=== PATIENT | female | born 1960 | race Caucasian/White ===

== ENCOUNTER 2019-08-03 22:57 | Inpatient (IN) | payer MEDICAID, SELFPAY ==
[2019-08-03 22:59] VITALS: BP 135/101; PULSE 105; RESP 18; TEMP 36.6; O2SAT 95; BMI 27.4
[2019-08-03 23:25] LABS: Basophils % 0.2 %; Eosinophils # 0.1 10^3/uL (0.0-0.8); Eosinophils % 1.9 %; Hematocrit 40.1 % (37.0-47.0); Hemoglobin 13.2 g/dL (11.5-15.3); Lymphocytes # 1.5 10^3/uL (0.8-4.8); Lymphocytes % 36.3 %; Mean Corpuscular HGB Conc 32.9 g/dL (30.0-36.0); Mean Corpuscular Hemoglobin 28.9 pg (28.0-34.0); Mean Corpuscular Volume 87.7 fL (81-99); Monocytes # 0.4 10^3/uL (0.2-0.9); Monocytes % 10.5 %; Neutrophils # 2.1 10^3/uL (1.8-7.7); Neutrophils % 50.9 %; Nucleated Red Blood Cells % 0 %; Platelet Count 180 10^3/cmm (130-400); Red Blood Count 4.57 10^6/uL (4.1-5.3); Red Cell Distribution Width 12.4 % (12.1-15.1); White Blood Count 4.2 10^3/uL (4.0-10.0)
[2019-08-03 23:46] LABS: Alanine Aminotransferase 15 U/L (0-33); Albumin Level 4.3 g/dL (3.5-5.2); Alkaline Phosphatase 101 IU/L (35-105); Anion Gap 14.7 (5-19); Aspartate Amino Transferase 17 U/L (0-32); Blood Urea Nitrogen 8 mg/dL (6-20); Calcium 10.1 mg/dL (8.5-10.5); Carbon Dioxide 26 mmol/L (22-29); Chloride 103 mmol/L (98-107); Globulin 3.2 g/dL (1.3-4.6); Glomerular Filtration Rate 102.3 mL/min (90-130); Glucose 131 mg/dL (74-109); Lipase 17 U/L (13-60); Potassium 3.7 mmol/L (3.5-5.1); Sodium 140 mmol/L (136-145); Total Bilirubin 0.4 mg/dL (0.15-1.2); Total Protein 7.5 g/dL (6.6-8.7)
[2019-08-04] VITALS (12 sets, daily range): BP systolic 110–151; BP diastolic 74–96; PULSE 67–95; RESP 16–18; TEMP 36.8; O2SAT 94–100
--- NOTE | 2019-08-04 02:48 | ED_ITS ---
Entered by Amina Patrick, acting as scribe for Lara Puga Aug 03, 2019 22:57 HPI - Abdominal Pain General: Chief Complaint: Abdominal Pain Stated Complaint: abd pain Time Seen by Provider: 08/04/19 02:45 History of Present Illness: HPI narrative: 59 yo f came to the er for abd pain. Onset was 2 months ago. Pt states that she had a really bad pain in her lower abd. Pt states that the pain is gone. Pt is Macanese and speaks very little spanish. Pt has her daughter that is translating for her mother. MD elicited complaint: abdominal pain Pertinent past history: none Onset (ago): month(s) (2 months ago) Pain Consistency: intermittent Location: RLQ and LLQ Severity: mild Quality: cramping and sharp Radiation: none Migration to: no migration Relieving factors: nothing Associated Symptoms: Reports no associated symptoms; Denies chills, coffee ground emesis, constipation, GI cramping, diarrhea, dysuria, fever(s), hematochezia, hematuria, hematemesis, melena, nausea, syncope and vomiting Related Data: Patient : No Review of Systems General: Reports: other (negative unless marked) Const: Denies: fever, chills, body aches, fatigue, malaise or diaphoresis Eyes: Denies: change in vision or blurry vision ENMT: Denies: throat pain, painful swallowing, hoarseness, ear pain, ear discharge, Change in hearing or nasal discharge Card: Denies: chest pain, palpitations, irregular heart rhythm, syncope, pre- syncope, shortness of breath on exertion or shortness of breath when lying down Resp: Denies: shortness of breath, productive cough, non-productive cough, wheezing, coughing up blood or chest congestion GI: Reports: abdominal pain; Denies: nausea, vomiting, vomiting blood, coffee grounds in vomit, diarrhea, constipation, cramping, blood in stool or black tarry stool : Denies: flank pain, painful urination, urinary frequency, urinary urgency, decreased urine ouput, urinary incontinence or blood in urine Musc: Denies: neck pain, back pain, extremity pain, extremity swelling, joint pain, joint swelling, joint warmth or joint stiffness Skin/Breast: Denies: rash, skin tenderness or yellow skin Neuro: Denies: headache, numbness in extremities, weakness in extremities, changes in sensation, lack of coordination, difficulty walking, dizziness, vertigo or confusion Endo: Denies: excessive thirst, tired all the time, cold intolerance, excessive sweating, flushing or hot flashes Gene/Lymph: Denies: easy bruising, easy bleeding, petechiae or enlarged lymph nodes All/Imm: Denies: hives, throat swelling, tongue swelling, facial swelling or acute wheezing PFSH ED PFSH: Statuses (acute, chronic, etc) shown below reflect problem list status as previously entered and may not be historically accurate Medical History Acalculous cholecystitis (Acute) Surgical History Hx laparoscopic cholecystectomy (Acute) Social History Smoking and tobacco status: never smoked Physical Exam Const: COMMON NORMALS: no apparent distress, oriented x3, no limitations, healthy appearing and well nourished EXAM LIMITATIONS: no altered mental status GENERAL APPEARANCE: cooperative, well kempt and well developed ORIENTATION/CONSCIOUSNESS: Yes awake HENMT: COMMON NORMALS: normocephalic, head/scalp atraumatic, hearing grossly normal bilaterally, external ears normal, EAC's normal, external nose normal and moist oral mucous membranes HEAD & SCALP: normal to inspection, normocephalic and atraumatic FACE & SINUS: normal facial exam and face symmetric NOSE: external nose normal and nares normal EXTERNAL EAR: Yes external ears normal EXTERNAL AUDITORY CANAL: EAC's normal MOUTH: oral and palatal mucosa normal and tongue normal Eye: COMMON NORMALS: PERRL, EOMs intact bilaterally, conjunctivae normal and no scleral icterus GENERAL EYE: normal appearance of both eyes and normal light reflex CONJUNCTIVA: Yes conjunctivae normal SCLERA: sclerae normal CORNEA: Yes corneas normal PUPIL: Yes PERRL DIRECT OPHTHALMOSCOPY: Yes normal light reflex Neck/C-Spine: COMMON NORMALS: full ROM, no lymphadenopathy, supple, no meningeal signs and no JVD GENERAL: Yes normal visual inspection and Yes trachea midline CERVICAL SPINE: Yes cervical ROM normal Chest: COMMONS NORMALS: inspection of chest normal and palpation of chest normal Resp: COMMON NORMALS: normal respiratory effort, no retractions, no use of accessory muscles and clear to auscultation bilaterally EFFORT & INSPECTION: Yes able to speak in complete sentences AUSCULTATION: clear to auscultation bilaterally Cardio: COMMON NORMALS: no JVD, regular rate, regular rhythm, S1 normal heart sound, S2 normal heart sound, no gallops, no clicks, no murmurs and no rub JUGULAR VENOUS DISTENTION: no JVD RATE: regular rate RHYTHM: regular rhythm HEART SOUNDS: S1 normal and S2 normal GI: COMMON NORMALS: soft to palpation, no hepatosplenomegaly and no masses INSPECTION: Yes normal to inspection PALPATION: Yes soft, Yes tender Details: RLQ and Yes no hepatosplenomegaly : COMMON NORMALS: Yes no CVA tenderness BLADDER/KIDNEY EXAM: Yes no CVA tenderness Back/Pelvis: COMMON NORMALS: no CVA tenderness, thoracic and lumbar spine normal to inspection, no thoracic nor lumbar tenderness and thoraco-lumbar ROM normal Extremity: COMMON NORMALS: normal to inspection, full ROM, normal capillary refill, no joint enlargement, no clubbing, cyanosis or edema and no calf tenderness Neuro: COMMON NORMALS: oriented x3, CN's II-XII intact bilaterally, moves all extremities, no focal motor deficits and no sensory deficits noted MENINGEAL SIGNS: Yes no meningeal signs Psych: COMMON NORMALS: mental status grossly normal, thought process normal, cooperative, affect normal, speech normal and activity/motor behavior normal APPEARANCE: Yes well kempt SPEECH: Yes normal speech THOUGHT PROCESS: nor mal thought process Skin: COMMON NORMALS: no rashes or lesions noted, skin turgor normal, no jaundice, no petechiae and no mottling GENERAL SKIN EXAM: no rashes or lesions noted and turgor normal Course Vital Signs: Vital signs: Vital Signs Temperature 97.9 F 08/03/19 22:59 Pulse Rate 86 08/04/19 04:02 Respiratory Rate 18 08/04/19 04:02 Blood Pressure 116/82 08/04/19 04:02 Pulse Oximetry 97 08/04/19 04:02 MDM - Abdominal Pain MDM Narrative: Medical decision making narrative: The case was reviewed with Drs. Grande and Aric, they will admit and consult respectively. The plan is to treat the patient's possible appendicitis with IV antibiotics and plan for radiology guided paracentesis to better determine the source of this patient's cancer. Lab Data: Labs: Lab Results 08/03/19 08/03/19 08/04/19 Range/Units 23:20 23:20 00:30 WBC 4.2 (4.0-10.0) 10^3/ uL RBC 4.57 (4.1-5.3) 10^6/u L Hgb 13.2 (11.5-15.3) g/dL Hct 40.1 (37.0-47.0) % MCV 87.7 (81-99) fL MCH 28.9 (28.0-34.0) pg MCHC 32.9 (30.0-36.0) g/dL RDW 12.4 (12.1-15.1) % Plt Count 180 (130-400) 10^3/c mm MPV 10.0 (7.4-10.4) fL Neut % (Auto) 50.9 % Lymph % (Auto) 36.3 % Curry % (Auto) 10.5 % Eos % (Auto) 1.9 % Baso % (Auto) 0.2 % Neut # (Auto) 2.1 (1.8-7.7) 10^3/u L Lymph # (Auto) 1.5 (0.8-4.8) 10^3/u L Curry # (Auto) 0.4 (0.2-0.9) 10^3/u L Eos # (Auto) 0.1 (0.0-0.8) 10^3/u L Baso # (Auto) 0.0 (0.0-0.1) 10^3/u L Nucleated RBC % (a uto) 0 % Nucleated RBCs # 0.0 /100WBC PT (10.5-13.3) SECO NDS INR (0.8-1.2) APTT (23.9-36.7) SECO NDS Sodium 140 (136-145) mmol/L Potassium 3.7 (3.5-5.1) mmol/L Chloride 103 (98-107) mmol/L Carbon Dioxide 26 (22-29) mmol/L Anion Gap 14.7 (5-19) BUN 8 (6-20) mg/dL Creatinine 0.6 (0.5-0.9) mg/dL GFR Calculation 102.3 (90-130) mL/min Glucose 131 H (74-109) mg/dL Calcium 10.1 (8.5-10.5) mg/dL Total Bilirubin 0.4 (0.15-1.2) mg/dL AST 17 (0-32) U/L ALT 15 (0-33) U/L Alkaline Phosphata se 101 (35-105) IU/L Total Protein 7.5 (6.6-8.7) g/dL Albumin 4.3 (3.5-5.2) g/dL Globulin 3.2 (1.3-4.6) g/dL Lipase 17 (13-60) U/L Urine Color Yellow (Yellow) Urine Appearance Clear (CLEAR) Urine pH 5 (5-7) Ur Specific Gravit y 1.015 (1.005-1.030) Urine Protein Neg (Negative) Urine Glucose (UA) Norm (Normal) Urine Ketones 1+ H (Negative) Urine Occult Blood Neg (Negative) Urine Nitrate Negative (Negative) Urine Bilirubin Neg (NEGATIVE) Urine Urobilinogen Norm (Negative) mg/dL Ur Leukocyte Sulma ase Negative (Negative) Urine RBC None (0-2) /hpf Urine WBC None (0-5) /hpf Ur Squamous Epith Cells 0-4 H (0-5) Ur Transition Epit h Cell 0-4 /hpf Urine Bacteria Trace (NONE) Urine Mucus 2+ 08/04/19 Range/Units 04:09 WBC (4.0-10.0) 10^3/ uL RBC (4.1-5.3) 10^6/u L Hgb (11.5-15.3) g/dL Hct (37.0-47.0) % MCV (81-99) fL MCH (28.0-34.0) pg MCHC (30.0-36.0) g/dL RDW (12.1-15.1) % Plt Count (130-400) 10^3/c mm MPV (7.4-10.4) fL Neut % (Auto) % Lymph % (Auto) % Curry % (Auto) % Eos % (Auto) % Baso % (Auto) % Neut # (Auto) (1.8-7.7) 10^3/u L Lymph # (Auto) (0.8-4.8) 10^3/u L Curry # (Auto) (0.2-0.9) 10^3/u L Eos # (Auto) (0.0-0.8) 10^3/u L Baso # (Auto) (0.0-0.1) 10^3/u L Nucleated RBC % (a uto) % Nucleated RBCs # /100WBC PT 14.20 H (10.5-13.3) SECO NDS INR 1.06 (0.8-1.2) APTT 31.5 (23.9-36.7) SECO NDS Sodium (136-145) mmol/L Potassium (3.5-5.1) mmol/L Chloride (98-107) mmol/L Carbon Dioxide (22-29) mmol/L Anion Gap (5-19) BUN (6-20) mg/dL Creatinine (0.5-0.9) mg/dL GFR Calculation (90-130) mL/min Glucose (74-109) mg/dL Calcium (8.5-10.5) mg/dL Total Bilirubin (0.15-1.2) mg/dL AST (0-32) U/L ALT (0-33) U/L Alkaline Phosphata se (35-105) IU/L Total Protein (6.6-8.7) g/dL Albumin (3.5-5.2) g/dL Globulin (1.3-4.6) g/dL Lipase (13-60) U/L Urine Color (Yellow) Urine Appearance (CLEAR) Urine pH (5-7) Ur Specific Gravit y (1.005-1.030) Urine Protein (Negative) Urine Glucose (UA) (Normal) Urine Ketones (Negative) Urine Occult Blood (Negative) Urine Nitrate (Negative) Urine Bilirubin (NEGATIVE) Urine Urobilinogen (Negative) mg/dL Ur Leukocyte Sulma ase (Negative) Urine RBC (0-2) /hpf Urine WBC (0-5) /hpf Ur Squamous Epith Cells (0-5) Ur Transition Epit h Cell /hpf Urine Bacteria (NONE) Urine Mucus Coding Level of Care Code ED [facility] for [facility] Fwd Exam Problem Focused The documentation recorded by the Darnell izquierdo Stephanie Lyn, accurately reflects the service I personally performed and the decisions made by Edd darden Eli N Aug 03, 2019 22:57
--- NOTE | 2019-08-04 02:49 | PC.NURSE ---
Introduced self to patient and initiated vital signs. Pt is A&O x 4 and agreeable. Pt daughter states that the reason for the ER visit today is due to abdominal pain which presented a few months ago . Pt does not speak Latvian fluently. Reassured patient of needs and will continue to monitor. Awaiting provider at bedside.
[2019-08-04 02:57] LABS: Urine Appearance Clear (CLEAR); Urine Color Yellow (Yellow); pH Urine 5 (5-7)
[2019-08-04 03:02] LABS: Bilirubin Urine Neg (NEGATIVE); Blood Urine Neg (Negative); Glucose Urine UA Norm (Normal); Ketones Urine 1+ (Negative); Leukocyte Esterase Urine Negative (Negative); Nitrate Urine Negative (Negative); Protein Urine Neg (Negative); Specific Gravity, Urine 1.015 (1.005-1.030); Urobilinogen Urine Norm (Negative)
--- NOTE | 2019-08-04 03:02 | CTR_ITS ---
PROCEDURE INFORMATION: Exam: CT Abdomen And Pelvis With Contrast Exam date and time: 08/04/2019 3:21 AM Age: 59 years old Clinical indication: Abdominal pain; Acute; Prior surgery; Surgery date: 6+ months; Surgery type: Cholecystectomy TECHNIQUE: Imaging protocol: Computed tomography of the abdomen and pelvis with intravenous contrast. Total DLP: 1075.09 mGy-cm Radiation optimization: All CT scans at this facility use at least one of these dose optimization techniques: automated exposure control; mA and/or kV adjustment per patient size (includes targeted exams where dose is matched to clinical indication); or iterative reconstruction. Contrast material: OMNI 300; Contrast volume: 95 ml; Contrast route: 20G; COMPARISON: US gall bladder [id number] 08/28/2018 1:48 PM FINDINGS: Pleural space: Small bilateral pleural effusions. Mediastinum: Small hiatal hernia. Liver: Mildly enlarged caudate lobe of the liver. No focal hepatic lesion. Gallbladder and bile ducts: Cholecystectomy. Pancreas: Normal. No ductal dilation. Spleen: Borderline splenomegaly. Adrenals: Normal. No mass. Kidneys and ureters: Tiny right renal calcification, either representing nonobstructive nephrolithiasis or calcification in the cyst wall. Right renal cysts measuring up to 12 mm. Subcentimeter right renal hypodensity, too small to characterize. Stomach and bowel: Couple of mildly dilated loops of proximal jejunum without a transition point. Small duodenal diverticulum. Appendix: Thickened appendix, measuring up to 8.5 mm. Intraperitoneal space: Peritoneal carcinomatosis. Large amount of partially loculated ascites. Vasculature: No abdominal aortic aneurysm. Lymph nodes: No enlarged lymph nodes. Bladder: Unremarkable as visualized. Reproductive: Unremarkable as visualized. Bones/joints: Unremarkable. No acute fracture. Soft tissues: Unremarkable. CT/CT abdomen pelvis w con* [id number] IMPRESSION: 1. Thickened appendix, measuring up to 8.5 mm. Acute appendicitis cannot be excluded. 2. Couple of mildly dilated loops of proximal jejunum without a transition point. Partial small-bowel obstruction is unlikely but cannot be excluded. 3. Peritoneal carcinomatosis. 4. Large amount of partially loculated ascites. 5. Tiny right renal calcification, either representing nonobstructive nephrolithiasis or calcification in the cyst wall. 6. Borderline splenomegaly. 7. Small bilateral pleural effusions. Radiation Dose CTDIVOL = (mGy): DLP = 1075.09 (mGy-cm)
--- NOTE | 2019-08-04 03:02 | US_ITS ---
WS: [id number] Abdomen ultrasound, 08/04/2019 Clinical Data: Pain Comparison: None. Findings: There is ascites in all 4 quadrants of the abdomen. US/US abdomen limited [id number] Impression: Large amount of abdominal ascites. .
[2019-08-04 03:04] LABS: Add Urine Culture? No; Bacteria Urine TRACE; Mucus Urine 2+; Squamous Epithelial Cell Urine 0-4 (0-5); Transitional Epi Cells Urine 0-4 /hpf
[2019-08-04] MEDS: sodium chloride 0.9% 1,000 ML 100 ML IV (03:55)
[2019-08-04] MEDS: ondansetron 2 mg/ML SDV 2 mL 4 MG IVP (03:55)
[2019-08-04] MEDS: morphine 4 mg/mL SDV 1 mL IVP (03:55)
[2019-08-04] MEDS: iohexol 300 mg/mL 100 mL Btl IV (04:44)
[2019-08-04 05:11] LABS: INR 1.06 (0.8-1.2)
[2019-08-04 05:12] LABS: Partial Thromboplastin Time 31.5 SECONDS (23.9-36.7)
--- NOTE | 2019-08-04 05:40 | P.HP_ITS ---
Providers/Chief Complaint Primary Care Provider: Eric Zepeda MD Chief Complaint: abd pain History of Present Illness Yuly Elias is a 59 year old female with no significant past medical history came in with chief complaint of abdominal pain. Patient is Cook Islander- speaking, daughter is at the bedside who is translating for her. Patient started having abdominal pain about 2 months ago which has been gradually getting worse it is mainly located in the right lower quadrant area, 8/10 dull in nature, nausea getting more diffuse, she has not experienced any fever, chills, nausea, vomiting, fever, weight loss, night sweats. Her last bowel movement was yesterday which was normal. no previous history of cancers. She has lived a healthy life without any complications in the past. She has had 13 pregnancies, she has 10 children, youngest child of leukemia. There is no family history of cancer. She was scheduled for uterine prolapse surgery today with Dr. Elliott. Diagnostics in ER showed normal hemodynamics, patient is and is not in any active cruzito pain, CT abdomen is showing appendicitis, loculated ascites, peritoneal carcinomatosis, Dr. Corbett has been consulted who is recommending Zosyn, interventional radiology to do ascitic tap for diagnostic purposes. All questions were answered to their satisfaction. Review of Systems Const: Reports: chills, body aches, change in appetite and fatigue; Denies: fever, change in weight, malaise or night sweats Eyes: Denies: change in vision ENMT: Denies: throat pain Card: Denies: chest pain or palpitations Resp: Denies: shortness of breath or productive cough GI: Reports: abdominal pain; Denies: nausea, vomiting, vomiting blood, coffee grounds in vomit, heartburn/indigestion or constipation : Denies: flank pain or urinary frequency Musc: Denies: neck pain Skin/Breast: Denies: rash or itching Neuro: Denies: headache, numbness in extremities or weakness in extremities Psych: Denies: anxiety or depression Endo: Denies: excessive urination Gene/Lymph: Denies: easy bruising All/Imm: Denies: hives Medications/Allergies Allergies Allergy/AdvReac Type Severity Reaction Status Date / Time No Known Allergies Allergy Verified 08/03/19 23:02 PFSH Acute PFSH: Statuses (acute, chronic, etc) shown below reflect problem list status as previously entered and may not be historically accurate Medical History Acalculous cholecystitis (Acute) Surgical History Hx laparoscopic cholecystectomy (Acute) Family History (Updated 08/04/19 @ 06:08 by Melissa Rosas MD) Denies family history of CAD (coronary artery disease) Bleeding disorder Cancer Social History (Updated 08/04/19 @ 06:08 by Melissa Rosas MD) Smoking and tobacco status: never smoked Alcohol intake: never Substance/Drug Use: never Household members: spouse and family Housing: House Vitals/I&O/Wt Last Vital Signs Temp 97.9 F 08/03/19 22:59 Pulse 86 08/04/19 04:02 Resp 18 08/04/19 04:02 BP 116/82 08/04/19 04:02 Pulse Ox 97 08/04/19 04:02 Weight last 48 hrs Weight 77.111 kg Physical Exam Narrative: EXAM NARRATIVE: Very pleasant female lying comfortably in her bed without any active distress EOMI, PERRLA Abdomen is soft, nontender no signs of peritonitis, no rebound tenderness rigidity, no left lower quadrant pain, mild splenomegaly, Flanks are distended Mild prominent veins on the right flank area S1, S2 no murmur or JVD Lungs are clear to auscultation Neurologically nonfocal exam Skin does not show any sign ischemia gangrene or ulcer Appropriate mood and affect Data : 08/03/19 23:20 08/03/19 23:20 A&P Assessment and plan (1) Appendicitis: Status: Acute Code(s): K37 - Unspecified appendicitis (2) Splenomegaly: Status: Acute Code(s): R16.1 - Splenomegaly, not elsewhere classified (3) Ascites: Status: Acute Code(s): R18.8 - Other ascites (4) Peritoneal carcinomatosis: Status: Acute Code(s): C78.6 - Secondary malignant neoplasm of retroperitoneum and peritoneum; C80.1 - Malignant (primary) neoplasm, unspecified Additional A&P Information Right lower quadrant pain secondary to appendicitis Dr. Corbett has been consulted who recommended Zosyn, ascitic tap by IR We will treat her with Zosyn, IV fluids, morphine for analgesia Patient does not have any constitutional symptoms, no current nausea vomiting or diarrhea She is not septic No previous history of cancer DVT prophylaxis: Not indicated in case she needs any intervention, will use SCDs for now Full code Attestations Medical Necessity Statement*: Anticipating stay more than 2 midnights for acute appendicitis and peritoneal carcinomatosis findings Time Spent in Patient Care: (>than 50% of time spent in counselling and/or direct pt care on unit) . 50 Coding Level of Care Code Acute Shank Stitcher for [facility] Fwd Diagnoses Appendicitis K37 Splenomegaly R16.1 Ascites R18.8 Peritoneal carcinomatosis C78.6; C80.1
[2019-08-04] MEDS: piperacillin-tazobactam 3.375 GM in sodium chloride 0.9% (plus) 50 ML IV (06:24)
--- NOTE | 2019-08-04 07:36 | PC.NURSE ---
nurse on previous shift bolused liter in rather than administer fluids at 100 ml/hr
--- NOTE | 2019-08-04 08:55 | US_ITS ---
WS: [id number] ULTRASOUND-GUIDED PARACENTESIS CLINICAL INFORMATION: Diagnostic paracentesis needed COMPARISON: None. Procedure Informed consent: The risks, benefits, and alternatives of the procedure were discussed with the maira ent. Verbal and written consent was obtained. Timeout: A timeout was performed to confirm the correct patient, procedure, and site. Preparation: A suitable skin site was identified. The patient was prepped and draped in usual sterile fashion. Lidocaine 1% was used for local anesthesia. Catheter: 4 Ecu[place]orean One-step New Screenseh catheter. Side: Right Lower quadrant. Fluid Volume: 900 ml Color: Clear yellow 50 cc sent for requested diagnostic tests. Complications: None. US/US paracentesis abd w [id number] IMPRESSION: Uncomplicated ultrasound-guided paracentesis. Removal of 900 cc clear yellow fluid
[2019-08-04 09:17] LABS: Basophils % 0.3 %; Eosinophils # 0.1 10^3/uL (0.0-0.8); Eosinophils % 1.8 %; Hematocrit 36.7 % (37.0-47.0); Hemoglobin 11.8 g/dL (11.5-15.3); Lymphocytes # 1.3 10^3/uL (0.8-4.8); Lymphocytes % 39.1 %; Mean Corpuscular HGB Conc 32.2 g/dL (30.0-36.0); Mean Corpuscular Hemoglobin 27.3 pg (28.0-34.0); Mean Platelet Volume 10.1 fL (7.4-10.4); Monocytes # 0.4 10^3/uL (0.2-0.9); Monocytes % 11.2 %; Neutrophils # 1.6 10^3/uL (1.8-7.7); Neutrophils % 47.3 %; Nucleated Red Blood Cells % 0 %; Platelet Count 165 10^3/cmm (130-400); Red Blood Count 4.32 10^6/uL (4.1-5.3); Red Cell Distribution Width 12.3 % (12.1-15.1); White Blood Count 3.3 10^3/uL (4.0-10.0)
[2019-08-04 09:46] LABS: CA 125 186.8 U/mL (0-35)
[2019-08-04 09:47] LABS: Carcinoembryonic Antigen 0.5 ng/mL (0.0-4.7)
[2019-08-04 09:48] LABS: Procalcitonin 0.02 ng/mL (0-0.5)
[2019-08-04 09:59] LABS: Alanine Aminotransferase 13 U/L (0-33); Albumin Level 3.6 g/dL (3.5-5.2); Alkaline Phosphatase 88 IU/L (35-105); Anion Gap 15.6 (5-19); Aspartate Amino Transferase 15 U/L (0-32); Blood Urea Nitrogen 6 mg/dL (6-20); Calcium 9.4 mg/dL (8.5-10.5); Carbon Dioxide 23 mmol/L (22-29); Chloride 104 mmol/L (98-107); Glomerular Filtration Rate 126.3 mL/min (90-130); Glucose 100 mg/dL (74-109); Iron 31 ug/dL (37-145); Percent Saturation 14.9 % (20-50); Potassium 3.6 mmol/L (3.5-5.1); Sodium 139 mmol/L (136-145); Total Bilirubin 0.5 mg/dL (0.15-1.2); Total Iron Binding Capacity 207 mcg/dl; Total Protein 6.6 g/dL (6.6-8.7); Unsaturated Iron Binding 176 ug/dL (112-347)
[2019-08-04 11:20] LABS: Body Fluid Polynuclear #Cells 0.034 10^3/uL; Body Fluid WBC 1310 u/L; Monocytes # Body Fluid 1.276 10^3/uL; RBC, Body Fluid 1 10^3/uL (0-0)
[2019-08-04 11:44] LABS: Apprearance, Body Fluid CLEAR (CLEAR); Body Fluid Total Cells Counted 100; Color, Body Fluid PALE YELLOW (PALE YELLOW)
[2019-08-04 11:45] LABS: Albumin Peritoneal Fluid 3.6 g/dL; PATH Referral YES
[2019-08-04 11:46] LABS: Albumin Body Fluid 3.6 g/dL; Amylase Peritoneal Fluid 16 U/L (88-109); Peritoneal Fluid Spec Gravity 1.032; pH Peritoneal Fluid 7.5
--- NOTE | 2019-08-04 12:05 | PM.DCS ---
Discharge Providers Date of Admission: 08/04/19 10:12 Date of Discharge: 08/04/19 Attending Provider at Admission: Melissa Rosas MD Attending Provider at Discharge: Juan Martinez MD Primary Care Provider: Eric Zepeda MD Diagnoses at Discharge Discharge Diagnosis (1) Appendicitis: Status: Acute (2) Splenomegaly: Status: Acute (3) Ascites: Status: Acute (4) Peritoneal carcinomatosis: Status: Acute Reason for Visit Reason for Visit: Reason For Visit: abd pain Hospital Course Discharge Summary: Yuly Elias is a 59 year old female with no significant past medical history came on August 04 with chief complaint of abdominal pain. Patient is Kosovan-speaking, daughter is at the bedside who is translating for her. Patient started having abdominal pain about 2 months ago which has been gradually getting worse it is mainly located in the right lower quadrant area, 8/10 dull in nature, nausea getting more diffuse, she has not experienced any fever, chills, nausea, vomiting, fever, weight loss, night sweats. Her last bowel movement was yesterday which was normal. no previous history of cancers. She has lived a healthy life without any complications in the past. She has had 13 pregnancies, she has 10 children, youngest child of leukemia. There is no family history of cancer. She was scheduled for uterine prolapse surgery today with Dr. Elliott. CT abdomen done in ER Showed thickened appendix measuring up to 8.5 cm along with peritoneal carcinomatosis and large amount of partially loculated ascites. Patient was admitted for diagnostic and therapeutic acetic tap. She underwent ultrasound-guided paracentesis in which 900 cc of fluid was tapped without any complication. Fluid studies ruled out any kind of SBP but initial fluid analysis was very concerning for atypical cells. Blood tests were unremarkable except elevated Ca1 25. Patient is being discharged on oral antibiotics for a possible enteritis to finish a course of 7 days and has been asked to follow-up as an outpatient with oncology for further work-up. Patient's case was also discussed with Dr. Corbett from surgery who agrees with the treatment plan and agrees at this point no surgical intervention is needed till more fluid analysis comes back. Patient has been made aware of the diagnosis and all the questions were answered. Patient does not have a primary care physician and has been provided 1 and his appointment has been made to follow-up in 2 weeks. Physical Exam Narrative: EXAM NARRATIVE: Very pleasant female lying comfortably in her bed without any active distress EOMI, PERRLA Abdomen is soft, nontender no signs of peritonitis, no rebound tenderness rigidity, no left lower quadrant pain, mild splenomegaly, bowel sounds present Cardiovascular: S1, S2 no murmur or JVD Lungs are clear to auscultation Neurologically nonfocal exam Skin does not show any sign ischemia gangrene or ulcer Appropriate mood and affect Discharge Data Data Completed and Pending: Completed Studies During Hospitalization Category Date Time Status CT abdomen pelvis w con* [id number] Urge nt Cat Scan 08/04/19 03:02 Completed US abdomen limite d 22042 Urgent Ultrasound 08/04/19 03:02 Completed Pending at discharge Category Date Time Status Albumin Body Flui d Routine Lab 08/04/19 08:55 Uncollected Albumin Peritonea l Fluid Routine Lab 08/04/19 08:55 Uncollected Amylase Peritonea l Fluid Routine Lab 08/04/19 08:55 Uncollected Blood Culture Sta t Lab 08/04/19 09:07 Results Body Fluid Analys is Routine Lab 08/04/19 08:55 Uncollected Body Fluid Cultur e Routine Lab 08/04/19 08:55 Uncollected Cell Count w Diff Body Fluid Routin e Lab 08/04/19 08:55 Uncollected Complete Blood Co unt w/Auto AM LABS Lab 08/05/19 04:00 Ordered Comprehensive Met abolic Panel AM LA BS Lab 08/05/19 04:00 Ordered Glucose Peritonea l Fluid Routine Lab 08/04/19 08:55 Uncollected LDH Peritoneal Fl uid Routine Lab 08/04/19 08:55 Uncollected MRSA by PCR Routi ne Lab 08/04/19 09:00 Uncollected Peritoneal Fluid Spec [place] Routi ne Lab 08/04/19 08:55 Uncollected Total Protein Per itoneal Fluid Rout ine Lab 08/04/19 09:55 Received pH Peritoneal Flu id Routine Lab 08/04/19 08:55 Uncollected Cytology [PTH] Ro utine Pth 08/04/19 10:49 Uncollected [place] bd w [id number] Urgent Ultrasound 08/04/19 08:55 Taken Labs from last 24 hours 08/04/19 08/04/19 08/04/19 09:55 09:07 09:07 WBC RBC Hgb Hct MCV MCH MCHC RDW Plt Count MPV Neut % (Auto) Lymph % (Auto) [place] % (Auto) Eos % (Auto) Baso % (Auto) Neut # (Auto) Lymph # (Auto) [place] # (Auto) Eos # (Auto) Baso # (Auto) Nucleated RBC % (a uto) Nucleated RBCs # Differential Comme nt Yes PT INR APTT Sodium Potassium Chloride Carbon Dioxide Anion Gap BUN Creatinine GFR Calculation Glucose Calcium Iron TIBC % Saturation Unsat Iron Binding Total Bilirubin AST ALT Alkaline Phosphata se Total Protein Albumin Globulin Lipase Carcinoembryonic A g 0.5 CA 125 Antigen 186.8 H Procalcitonin Urine Color Urine Appearance Urine pH Ur Specific Gravit y Urine Protein Urine Glucose (UA) Urine Ketones Urine Occult Blood Urine Nitrate Urine Bilirubin Urine Urobilinogen Ur Leukocyte Sulma ase Urine RBC Urine WBC Ur Squamous Epith Cells Ur Transition Epit h Cell Urine Bacteria Urine Mucus Fluid Color Pale yellow Fluid Appearance Clear Fluid WBC 1310 Fluid RBC 1 H Fluid Tot Cell Cou nt 100 Fld Polynuclear WB Cs # 0.034 Fld Polynuclear WB Cs % 2.600 Fl Mononucl WBCs # (Auto) 1.276 Fl Mononuclear % A uto 97.400 Fluid Albumin 3.6 Peritoneal pH 7.5 Peritoneal Spec Gr avity 1.032 Peritoneal Albumin 3.6 Peritoneal LDH 190.0 Peritoneal Glucose 106.0 Peritoneal Amylase 16 L 08/04/19 08/04/19 08/04/19 09:07 09:07 04:09 WBC 3.3 L RBC 4.32 Hgb 11.8 Hct 36.7 L MCV 85.0 MCH 27.3 L MCHC 32.2 RDW 12.3 Plt Count 165 MPV 10.1 Neut % (Auto) 47.3 Lymph % (Auto) 39.1 [place] % (Auto) 11.2 Eos % (Auto) 1.8 Baso % (Auto) 0.3 Neut # (Auto) 1.6 L Lymph # (Auto) 1.3 [place] # (Auto) 0.4 Eos # (Auto) 0.1 Baso # (Auto) 0.0 Nucleated RBC % (a uto) 0 Nucleated RBCs # 0.0 Differential Comme nt PT 14.20 H INR 1.06 APTT 31.5 Sodium 139 Potassium 3.6 Chloride 104 Carbon Dioxide 23 Anion Gap 15.6 BUN 6 Creatinine 0.5 GFR Calculation 126.3 Glucose 100 Calcium 9.4 Iron 31 L TIBC 207 % Saturation 14.9 L Unsat Iron Binding 176 Total Bilirubin 0.5 AST 15 ALT 13 Alkaline Phosphata se 88 Total Protein 6.6 Albumin 3.6 Globulin 3.0 Lipase Carcinoembryonic A g CA 125 Antigen Procalcitonin 0.02 Urine Color Urine Appearance Urine pH Ur Specific Gravit y Urine Protein Urine Glucose (UA) Urine Ketones Urine Occult Blood Urine Nitrate Urine Bilirubin Urine Urobilinogen Ur Leukocyte Sulma ase Urine RBC Urine WBC Ur Squamous Epith Cells Ur Transition Epit h Cell Urine Bacteria Urine Mucus Fluid Color Fluid Appearance Fluid WBC Fluid RBC Fluid Tot Cell Cou nt Fld Polynuclear WB Cs # Fld Polynuclear WB Cs % Fl Mononucl WBCs # (Auto) Fl Mononuclear % A uto Fluid Albumin Peritoneal pH Peritoneal Spec Gr avity Peritoneal Albumin Peritoneal LDH Peritoneal Glucose Peritoneal Amylase 08/04/19 08/03/19 08/03/19 00:30 23:20 23:20 WBC 4.2 RBC 4.57 Hgb 13.2 Hct 40.1 MCV 87.7 MCH 28.9 MCHC 32.9 RDW 12.4 Plt Count 180 MPV 10.0 Neut % (Auto) 50.9 Lymph % (Auto) 36.3 [place] % (Auto) 10.5 Eos % (Auto) 1.9 Baso % (Auto) 0.2 Neut # (Auto) 2.1 Lymph # (Auto) 1.5 [place] # (Auto) 0.4 Eos # (Auto) 0.1 Baso # (Auto) 0.0 Nucleated RBC % (a uto) 0 Nucleated RBCs # 0.0 Differential Comme nt PT INR APTT Sodium 140 Potassium 3.7 Chloride 103 Carbon Dioxide 26 Anion Gap 14.7 BUN 8 Creatinine 0.6 GFR Calculation 102.3 Glucose 131 H Calcium 10.1 Iron TIBC % Saturation Unsat Iron Binding Total Bilirubin 0.4 AST 17 ALT 15 Alkaline Phosphata se 101 Total Protein 7.5 Albumin 4.3 Globulin 3.2 Lipase 17 Carcinoembryonic A g CA 125 Antigen Procalcitonin Urine Color Yellow Urine Appearance Clear Urine pH 5 Ur Specific Gravit y 1.015 Urine Protein Neg Urine Glucose (UA) Norm Urine Ketones 1+ H Urine Occult Blood Neg Urine Nitrate Negative Urine Bilirubin Neg Urine Urobilinogen Norm Ur Leukocyte Sulma ase Negative Urine RBC None Urine WBC None Ur Squamous Epith Cells 0-4 H Ur Transition Epit h Cell 0-4 Urine Bacteria Trace Urine Mucus 2+ Fluid Color Fluid Appearance Fluid WBC Fluid RBC Fluid Tot Cell Cou nt Fld Polynuclear WB Cs # Fld Polynuclear WB Cs % Fl Mononucl WBCs # (Auto) Fl Mononuclear % A uto Fluid Albumin Peritoneal pH Peritoneal Spec Gr avity Peritoneal Albumin Peritoneal LDH Peritoneal Glucose Peritoneal Amylase Vitals: Last Vital Signs Temp 98.2 F 08/04/19 10:51 Pulse 67 08/04/19 10:51 Resp 18 08/04/19 10:51 BP 118/80 08/04/19 10:51 Pulse Ox 96 08/04/19 10:51 Discharge Plan Discharge Patient Disposition: Home, Self-Care Condition: Stable Prescriptions: New Zofran 4 mg tablet 4 mg PO DAILY PRN (Reason: nausea and vomiting) 4 Days Qty: 10 RF: 0 levofloxacin 750 mg tablet 750 mg PO DAILY 7 Days Qty: 7 RF: 0 Discharge Orders: Discharge Order (Routine); Ordered 08/04/19 Ordered By: Juan Martinez Referrals: Eric Zepeda MD [Primary Care Provider] - 2 weeks (You have an appointment on @ 1pm.) Matt Ballard MD [Hospitalist] - 1 week (Call and make an appointment to be seen within the next week.) Discharge Diet: Regular Discharge Activity: Resume usual activity Discharge Date/Time: 08/04/19 13:14 Discharge Attestations Time Spent in Discharge Care*: greater than 30 min Specific Discharge Activities: Specific discharge activities: educating patient and educating and/or supporting family/caregiver Status at Discharge: Cognitive status at discharge: cognitively intact, Behavioral status at discharge: cooperative, Functional status at discharge: independent ambulation Overall status at discharge: patient is back to baseline Quality Metrics Clinical Quality Measures During this hospital stay, did patient experience: None Coding Level of Care Code Acute Scientific Programmer Analyst for g Fwd Diagnoses Appendicitis K37 Splenomegaly R16.1 Ascites R18.8 Peritoneal carcinomatosis C78.6; C80.1
--- NOTE | 2019-08-04 12:08 | PC.NURSE ---
Patient is primary Angolan speaking at this time, however is able to understand and speak small phrases in Romanian. This RN offered [employer] per patient's rights and she declines at this time, stating that she would like her daughter to continue to provide lab support tech services.
[2019-08-04 14:05] LABS: Total Protein Peritoneal Fluid 5.5 g/dL
== END 2019-08-04 13:14 | disposition home or self-care (01) | DRG 375 ==
LOC: ER 08-04 02:45 → MEDSURG 08-04 10:12
PROVIDERS: Admitting Provider Internal Medicine; Emergency Provider Emergency Medicine; Family Provider Family Medicine; PCP Family Medicine; Visit Provider Student in an Organized Health Care Education/Training Program
DX: C78.6 Secondary malignant neoplasm of retroperitoneum and peritoneum (principal); K35.80 Unspecified acute appendicitis; R18.8 Other ascites; R16.1 Splenomegaly, not elsewhere classified; C80.1 Malignant (primary) neoplasm, unspecified
CPT/HCPCS: 12345; 36415; 49083; 74177; 76705; 80053; 80500; 81001; 82042; 82150; 82378; 82945; 83540; 83550; 83615; 83690; 83986; 84145; 84157; 84315; 85025; 85610; 85730; 86304; 87040; 87070; 87075; 87205; 87641; 88112; 88305; 89050; 96360; 96361; 96374; 99283; J2001; J2270; J2405; J2543; J7030; Q9967

== ENCOUNTER 2019-08-03 22:57 | Emergency (ER) | payer MEDICAID, SELFPAY | END 2019-08-04 10:28 | disposition admitted as inpatient to this hospital (09) | LOC: ER 11-01 10:25 | PROVIDERS: Emergency Provider Emergency Medicine; Family Provider Family Medicine; PCP Family Medicine | DX: R10.9 Unspecified abdominal pain (principal) | CPT/HCPCS: 12345; 36415; 49083; 74177; 76705; 80053; 81001; 82042; 82150; 82378; 82945; 83540; 83550; 83615; 83690; 83986; 84145; 84157; 84315; 85025; 85610; 85730; 86304; 87040; 87070; 87075; 87205; 89050; 96360; 96361; 96365; 96374; 96375; 99283; 99285; J2270; J2405; J2543; J7030; Q9967 ==

== ENCOUNTER → 2019-08-28 14:00 | Day surgery (SDC) | payer MEDICAID, SELFPAY ==
[2019-08-28 14:21] VITALS: BP 126/86; PULSE 85; RESP 18; TEMP 36.6; O2SAT 96; BMI 25.9
--- NOTE | 2019-08-28 14:27 | US_ITS ---
WS: [id number] ULTRASOUND-GUIDED PARACENTESIS CLINICAL INFORMATION: ascites COMPARISON: None. Procedure Informed consent: The risks, benefits, and alternatives of the procedure were discussed with the maira ent. Verbal and written consent was obtained. Timeout: A timeout was performed to confirm the correct patient, procedure, and site. Preparation: A suitable skin site was identified. The patient was prepped and draped in usual sterile fashion. Lidocaine 1% was used for local anesthesia. Catheter: 4 British One-step Yueh catheter. Side: Right Lower quadrant. Fluid Volume: 4200 ml Color: Clear yellow DISPOSITION: Discarded safely. Complications: None. Patient disposition: Discharged from the department in stable condition. US/US paracentesis abd w [id number] IMPRESSION: Uncomplicated ultrasound-guided paracentesis. Removal of 4200 cc ascites
== END ==
PROVIDERS: Family Provider Family Medicine; PCP Family Medicine; Visit Provider Family Medicine
DX: R18.8 Other ascites (principal)
CPT/HCPCS: 49083

== ENCOUNTER 2019-08-30 14:03 | Outpatient (CLI) | payer MEDICAID, SELFPAY ==
--- NOTE | 2019-08-30 18:02 | ONC CON_ITS ---
Dr. Ballard New Patient Note Patient: Yuly Elias Unit #: [id number]: [id number] Dicatated By: Matt Ballard M.D.Date of Visit: Aug 30, 2019 Onc MED New Patient/Consult Referring Physician: Dr. Eric Zepeda M.D. Chief Complaint: Peritoneal carcinomatosis. 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 This patient has been in good general health. Sometime within the past 2 to 3 months she began having pain in the lower abdominal area. She presented to the emergency room with that complaint on 08/04/2019. Her CT abdomen/pelvis at that time showed evidence of peritoneal carcinomatosis together with a large amount of partially loculated ascites. Other findings included a thickened appendix measuring up to 8.5 mm, borderline splenomegaly, and small bilateral pleural effusions. She was admitted to the hospital and underwent paracentesis resulting in removal of 900 mL of fluid. Cytology on the fluid showed atypical cells consistent with metastatic carcinoma. She was then admitted to [facility] on 08/07/2019. Repeat CT abdomen/pelvis showed moderate to large volume ascites with omental nodularity and peritoneal enhancement, suspicious for an infectious or malignant process. Also noted was severe transverse colonic wall thickening and irregularity with hyperenhancement as well as an indeterminate right adrenal nodule and right renal lesion. Chest CT showed 2 indeterminate pulmonary nodules. Her Ca 125 was noted to be elevated at 199 U/mL. Her other tumor markers included normal CA-15-3, CA-19-9, and CEA levels. Colonoscopy on 08/10/2019 showed some tortuosity of the sigmoid and transverse colon, possibly related to the omental disease. A 10 mm polyp was found in the sigmoid colon. There were no other abnormalities noted. EGD showed a single 4 mm mucosal nodule in the upper third of the esophagus and a single 6 mm mucosal nodule at the GE junction. Diffuse mucosal changes characterized by nodularity and granularity were found in the gastric body and in the gastric antrum. A superficial duodenal ulcer with no stigmata of bleeding was found in the duodenal bulb. Pathology on the sigmoid colon biopsy revealed tubular adenoma. The duodenum showed peptic duodenitis and the stomach biopsy showed antral mucosa with active chronic Helicobacter pylori gastritis. The GE junction biopsy showed squamous mucosa with focal pancreatic acinar cell metaplasia. Biopsy of the proximal esophageal lesion showed squamous mucosa with mild reactive epithelial changes. There was no evidence of malignancy. She had repeat paracentesis on 08/14/2019. Cytology showed adenocarcinoma with an immunophenotype which was felt to be most compatible with an adenocarcinoma of pancreaticobiliary or upper gastrointestinal tract origin. PET/CT on 08/16/2019 showed FDG avid omental and peritoneal nodularity with moderate volume ascites. The most FDG avid focus was noted within the soft tissue nodularity of the omentum, SUV 11.6. The most FDG avid peritoneal nodularity was in the right aspect of the pelvis with SUV 9.4. There was no dominant FDG avid lesion to suggest a primary source of malignancy. A hypoattenuating right adrenal gland lesion was felt to be indeterminate. She was prescribed triple therapy for the Helicobacter pylori at discharge on 08/18/2019. She had a repeat therapeutic paracentesis at [facility] on 08/28/2019. She is seen now for further management. She continues to have significant pain in the lower abdominal area and lower back. It does tend to be worse with walking. She has felt more tired generally, and she feels that she is getting weaker. She has limited activity. Her ECOG score is 2. Her appetite has not been good. She has been eating small meals more frequently. Her weight is down close to 20 pounds. She does not have fever, night sweats, or hot flashes. She has not been having nausea and she is not having heartburn or acid reflux symptoms. Bowel and bladder function remain adequate. She has not had any difficulty with her breathing. She has not been having any significant joint or bone pain. She has no focal neurologic symptoms. Past Medical History: She has had no prior ongoing medical illnesses. Past Surgical History: Her only prior surgery was a cholecystectomy in 2019. Medications: Astaxanthin 1 Capsule (of 4 mg) Oral b.i.d., beta-1/3 immune support 1 Capsule Oral t.i.d., Garlic 1 Tablet Oral b.i.d., Vitamin C 1 (1000 mg) Liquid Oral t.i.d., vitamin code 1 Capsule Oral b.i.d. Allergies: No Known Allergies. Social History: Ms. Elias is . She is a non-smoker. She does not drink alcohol. Family History: Father at 78, apparently of old age. Mother at age 65. It sounds as though she had congestive heart failure. A younger brother in a motor vehicle accident. Eight other siblings are living and okay. A daughter of leukemia at age 11. There have been no other malignancies in the family. Review Of Symptoms: Constitutional - Her energy is low and she feels weaker. She walks and does some light chores at home. Her appetite is fair. She eats small meals, several times a day. She has lost weight in the last 6 months or so. No fever, chills, hot flashes, or night sweats. ECOG score is 1, Eyes - In vision, ENMT - No hearing loss or tinnitus. No sinus congestion/drainage. No mouth sores. No sore throat or difficulty swallowing, Hematologic/Lymphatic - No abnormal bruising or bleeding, Respiratory - No shortness of breath. No cough. No pleuritic pain or hemoptysis, Cardiovascular - No angina pain. No palpitations, Gastrointestinal - No nausea or vomiting. No heartburn or acid reflux. No diarrhea or constipation. No blood in the stool or black stools. She has pain in her lower abdomen/pelvic region, and she has pain in her lower back, Genitourinary (F) - No dysuria or hematuria. No urinary frequency. No urgency or incontinence, Musculoskeletal - She has no other joint or bone pain, Integumentary - No skin complications, Neurologic - No headache or dizziness. No numbness/paresthesias or other focal neurologic symptoms, Psychiatric - No anxiety or depression. No insomnia. Vital Signs: Performed on Aug 30, 2019 15:02: 5, 26.09, 1.78 sq.m, 65.00 in, 98 %, 79 /min, 16 /min, 127/86 mm(hg), 97.8 F (LOW), and 156.8 lbs (HIGH). Physical Examination: Constitutional - She appears to be in pretty good general health, Eyes - Sclerae nonicteric. Conjunctivae clear, ENMT - No lesions noted in the oral cavity, Neck - No mass or thyromegaly, Hematologic/Lymphatic - No cervical, clavicular, or axillary adenopathy, Respiratory - Lungs are clear with good air movement bilaterally, Cardiovascular - Heart rhythm is regular. There is no murmur, gallop, or rub noted, Abdomen - Soft. She is not significantly distended, but there is a fluid wave present. Liver and spleen are not enlarged. There is no abdominal mass or ascites noted and there is no inguinal adenopathy, Back/Spine - No spine or CVA tenderness noted, Extremities - No edema. Pedal pulses are palpable bilaterally, Integumentary - No rashes. No suspicious skin lesions noted, Neurologic - No focal neurologic deficits noted. Impression: 1. Patient with peritoneal carcinomatosis and associated ascites and with peritoneal fluid cytology positive for adenocarcinoma. Immunohistochemical staining pattern was felt to be most consistent with hepatobiliary or upper gastrointestinal primary. However, in the absence of any other source for primary malignancy and with elevated Ca1 25 level, the clinical picture is suggestive of primary peritoneal carcinoma. 2. She had pathologic evidence of active chronic Helicobacter pylori gastritis. Plan: I reviewed all of the clinical findings and the pathology results with the patient and her . A daughter was present to assist as personal computer network engineer. We discussed the fact that this type of a malignant process is not amenable to either surgery or radiation. With primary peritoneal carcinoma there is a reasonably good response rate to chemotherapy, typically with a combination of carboplatin/paclitaxel. We discussed the fact that chemotherapy will not have any potential for cure and that it potentially would have significant side effects. Those were reviewed including the potential for nausea/vomiting, fatigue, alopecia, low blood counts, and neuropathy, among others. We also discussed the fact that, depending on results of additional pathologic studies, there may be other treatment options such as targeted therapies or immunotherapy, and I will have to consult with the pathologist to determine whether we have a specimen available which would be sufficient for a next generation sequencing study. At this point she does not seem particularly enthusiastic about the idea of trying chemotherapy. At least for now we will be deferring any decision about treatment pending results of a next generation sequencing study. Signed By: Matt Ballard M.D. <<Signature on File>>
== END 2019-08-30 14:04 | disposition home or self-care (01) ==
LOC: ONCMED 14:03
PROVIDERS: Family Provider Family Medicine; PCP Family Medicine; Visit Provider Internal Medicine Medical Oncology
DX: C48.2 Malignant neoplasm of peritoneum, unspecified (principal); R91.8 Other nonspecific abnormal finding of lung field; G89.3 Neoplasm related pain (acute) (chronic); R18.0 Malignant ascites; K29.50 Unspecified chronic gastritis without bleeding; B96.81 Helicobacter pylori [H. pylori] as the cause of diseases classified elsewhere
CPT/HCPCS: 99205

== ENCOUNTER 2019-09-20 09:00 | Outpatient (CLI) | payer MEDICAID, SELFPAY ==
--- NOTE | 2019-09-20 14:10 | ONC FU_ITS ---
Dr. Ballard Patient Follow-Up Note Patient: Yuly Elias Unit #: [id number]: [id number] Dicatated By: Matt Ballard M.D.Date of Visit:Sep 20, 2019 Onc Med Follow-up/Prog Note Chief Complaint: Peritoneal carcinomatosis. 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 On 08/04/2019 she had presented to the emergency room with 2-3 month history of pain in the lower abdominal area. Her CT abdomen/pelvis at that time showed evidence of peritoneal carcinomatosis together with a large amount of partially loculated ascites. Other findings included a thickened appendix measuring up to 8.5 mm, borderline splenomegaly, and small bilateral pleural effusions. She was admitted to the hospital and underwent paracentesis resulting in removal of 900 mL of fluid. Cytology on the fluid showed atypical cells consistent with metastatic carcinoma. She was then admitted to [facility] on 08/07/2019. Repeat CT abdomen/pelvis showed moderate to large volume ascites with omental nodularity and peritoneal enhancement, suspicious for an infectious or malignant process. Also noted was severe transverse colonic wall thickening and irregularity with hyperenhancement as well as an indeterminate right adrenal nodule and right renal lesion. Chest CT showed 2 indeterminate pulmonary nodules. Her Ca 125 was noted to be elevated at 199 U/mL. Her other tumor markers included normal CA-15-3, CA-19-9, and CEA levels. Colonoscopy on 08/10/2019 showed some tortuosity of the sigmoid and transverse colon, possibly related to the omental disease. A 10 mm polyp was found in the sigmoid colon. There were no other abnormalities noted. EGD showed a single 4 mm mucosal nodule in the upper third of the esophagus and a single 6 mm mucosal nodule at the GE junction. Diffuse mucosal changes characterized by nodularity and granularity were found in the gastric body and in the gastric antrum. A superficial duodenal ulcer with no stigmata of bleeding was found in the duodenal bulb. Pathology on the sigmoid colon biopsy revealed tubular adenoma. The duodenum showed peptic duodenitis and the stomach biopsy showed antral mucosa with active chronic Helicobacter pylori gastritis. The GE junction biopsy showed squamous mucosa with focal pancreatic acinar cell metaplasia. Biopsy of the proximal esophageal lesion showed squamous mucosa with mild reactive epithelial changes. There was no evidence of malignancy. She had repeat paracentesis on 08/14/2019. Cytology showed adenocarcinoma with an immunophenotype which was felt to be most compatible with an adenocarcinoma of pancreaticobiliary or upper gastrointestinal tract origin. PET/CT on 08/16/2019 showed FDG avid omental and peritoneal nodularity with moderate volume ascites. The most FDG avid focus was noted within the soft tissue nodularity of the omentum, SUV 11.6. The most FDG avid peritoneal nodularity was in the right aspect of the pelvis with SUV 9.4. There was no dominant FDG avid lesion to suggest a primary source of malignancy. A hypoattenuating right adrenal gland lesion was felt to be indeterminate. She was prescribed triple therapy for the Helicobacter pylori at discharge on 08/18/2019. [place] [facility] [place] I had seen her initially on 08/30/2019. At that time she was not very enthusiastic about the prospect of attempting any chemotherapy. I had recommended obtaining a next generation sequencing study on her biopsy to screen for other treatment options which may be available. There was some delay in getting that requested, as she was lacking insurance and had Medicaid application pending. It is currently in process. She is seen now for a follow-up visit. She has been feeling okay, though she does have significant abdominal pain. She rates it at a 5, but her family indicates that at times it is much more severe. She had previously have been getting some relief with 5 mg oxycodone, but she had [employer]IST side effects with it. She has limited activity, but she is up and around. Her ECOG score is 2. Her appetite is not good, but she is able to eat small meals frequently. She has no fever or night sweats. She has no shortness of breath, cough, or chest pain. She does not complain of nausea. Bowel function and bladder function have been adequate. She does complain that she is getting knots at the paracentesis procedure sites. She has no significant joint or bone pain. She has no focal neurologic symptoms. Medications: Astaxanthin 1 Capsule (of 4 mg) Oral b.i.d., beta-1/3 immune support 1 Capsule Oral t.i.d., Garlic 1 Tablet Oral b.i.d., Vitamin C 1 (1000 mg) Liquid Oral t.i.d., vitamin code 1 Capsule Oral b.i.d. Allergies: No Known Allergies. Review of Systems: Constitutional - Her energy level is low. She does a few things around the house but she is mainly sitting. She has no appetite but is able to eat. Her weight is down 7 pounds from last visit. No fever, chills, hot flashes, or night sweats. ECOG score is 2, ENMT - No sinus congestion/drainage. No mouth sores. No sore throat or difficulty swallowing, Hematologic/Lymphatic - No abnormal bruising or bleeding, Respiratory - No shortness of breath. No cough. No pleuritic pain or hemoptysis, Cardiovascular - No angina pain. No palpitations, Gastrointestinal - No nausea or vomiting. No heartburn or acid reflux. No diarrhea or constipation. No blood in the stool or black stools. She has some abdominal pain, Genitourinary (F) - No dysuria or hematuria. No urinary frequency. No urgency or incontinence, Musculoskeletal - She has some pain to area where paracentesis was performed, Integumentary - No skin complications, Neurologic - No headache. She has some dizziness when she takes the pain medication. No numbness/paresthesias or other focal neurologic symptoms, Psychiatric - No anxiety or depression. No insomnia. Vital Signs: Performed on Sep 20, 2019 09:17 Height - 65.00 in Weight - 149.6 lbs (LOW) BSA - 1.75 sq.m BMI - 24.89 Temperature - 97.6 F (LOW) Pulse - 96 /min Respiration - 22 /min BP - 117/76 mm(hg) O2 Sat - 98 % Pain - 5 Physical Examination: Constitutional - She looks pretty good generally, Eyes - Sclerae nonicteric. Conjunctivae clear, ENMT - No lesions noted in the oral cavity, Hematologic/Lymphatic - No cervical, clavicular, or axillary adenopathy, Respiratory - Lungs are clear but with slightly diminished air movement at the right base, Cardiovascular - Heart rhythm is regular. There is no murmur, gallop, or rub noted, Abdomen - Mildly distended but soft. Liver and spleen are not enlarged. There is no abdominal mass noted. There is palpable nodularity at paracentesis insertion sites in the right mid to upper abdomen. There is no inguinal adenopathy, Extremities - No edema, Neurologic - No focal neurologic deficits noted. Impression: 1. Patient with peritoneal carcinomatosis and associated ascites and with peritoneal fluid cytology positive for adenocarcinoma. Immunohistochemical staining pattern was felt to be most consistent with hepatobiliary or upper gastrointestinal primary. However, in the absence of any other source for primary malignancy and with elevated Ca1 25 level, the clinical picture is suggestive of primary peritoneal carcinoma. 2. She had pathologic evidence of active chronic Helicobacter pylori gastritis. At the time of my initial visit, she had indicated that she was not interested in attempting chemotherapy. As such, I had requested a next generation sequencing study. The request initially had to be delayed, but the study is now in process. In the meantime, she continues to have ascites and pain associated with the peritoneal carcinomatosis. She also has developed subcutaneous nodules at the paracentesis insertion sites. Plan: At least for now any further treatment recommendations will be deferred pending results of the next generation sequencing study. However, as previously noted, she is not going to be very interested in pursuing standard chemotherapy options. In the meantime, I will arrange a referral to Dr. Corbett for placement of an indwelling intra-abdominal catheter for management of the ascites. In addition, she will be given a prescription for immediate release morphine 15 mg to take 1/2 to 1 tablet as needed for pain. Once she is on a more consistent schedule of opiate pain medication, I will consider putting her on a fentanyl patch. Signed By: Matt Ballard M.D. <<Signature on File>>
== END 2019-09-20 09:01 | disposition home or self-care (01) ==
PROVIDERS: Family Provider Family Medicine; PCP Family Medicine; Visit Provider Internal Medicine Medical Oncology
DX: C48.2 Malignant neoplasm of peritoneum, unspecified (principal); J91.0 Malignant pleural effusion; R18.0 Malignant ascites
CPT/HCPCS: 99214

== ENCOUNTER 2019-09-25 08:11 | Day surgery (SDC) | payer MEDICAID, SELFPAY ==
[2019-09-22 17:38] VITALS: BMI 24.7
[2019-09-25 08:35] VITALS: BP 111/84; PULSE 86; RESP 18; TEMP 36.5; O2SAT 97
--- NOTE | 2019-09-25 08:38 | W.PM.OPSUD ---
Surgery/Procedure H&P Update DATE OF PROCEDURE: September 25, 2019 DATE H&P PERFORMED: 09/22/19 H&P UPDATE INFORMATION: I have reviewed H&P completed within last 30 days, I have examined patient prior to procedure and No changes to prior documentation PREOP DIAGNOSIS: Peritoneal carcinomatosis PLANNED PROCEDURE: Operation Date: 09/25/19 11:50 Proposed Procedures p Peritoneal Catheter Insertion 53738 C78.6 C80.1(Not Applicable) - Michele Corbett MD s Abdominal Paracentesis(Not Applicable) - Michele Corbett MD
[2019-09-25] MEDS: sodium chloride 0.9% 1,000 ML 30 ML IV (08:44)
--- NOTE | 2019-09-25 09:00 | ANES.PREANE2 ---
Pre-Anesthetic Assessment Pre-Anesthetic Assessment: Height/Weight: Height 1.65 m Weight 67.585 kg Temp Pulse Resp BP Pulse Ox 97.7 F 86 18 111/84 97 09/25/19 08:35 09/25/19 08:35 09/25/19 08:35 09/25/19 08:35 09/25/19 08:35 Preop Diagnosis: Peritoneal carcinomatosis Proposed Procedure: Operation Date: 09/25/19 11:50 Proposed Procedures p Peritoneal Catheter Insertion [id number] C78.6 C80.1(Not Applicable) - Michele Corbett MD s Abdominal Paracentesis(Not Applicable) - Michele Corbett MD Familial anesthetic complications: No Was Beta Harika taken within 24 hours: N/A Last intake: Intake Last Liquid Date 09/24/19 Last Liquid Time 20:30 Last Solid Date 09/24/19 Last Solid Time 20:30 Social: Social History: No alcohol and No tobacco Exam: Pre-Anes Outpt Exam: alert, oriented x 3, clear to auscultation bilaterally and regular rate & rhythm Airway: Cervical ROM: WNL MP: 3 Dentition: Full Pulmonary: Pulmonary: None reported CV/HEM: CV/HEM: None reported : : None reported Hepatic: Hepatic: None reported GI: GI: None reported Metabolic: Metabolic: None reported Musc/skel: Musc/skel: None reported Neuropsych: Neuropsych: None reported Anesthetic Plan: ASA status: 3 Anesthesia: General Risk of > 500 ml blood loss (7ml/kg in children): No Meds/Allergies Current Medications: Current Medications Generic Name Dose Route Start Last Admin Trade Name Freq PRN Reason Stop Dose Admin Sodium Chloride 1,000 mls @ 30 ml s/hr 09/25/19 08:30 09/25/19 08:44 Sodium Chloride 0.9% IV 09/26/19 08:29 30 mls/hr .Q24H HOWARD Administration PFSH Anesthesia PFSH: Medical History (Updated 09/22/19 @ 18:01 by Michele Corbett MD) Gallbladder cancer History of duodenal ulcer Peritoneal carcinomatosis Surgical History (Updated 09/22/19 @ 18:01 by Michele Corbett MD) History of abdominal paracentesis (~08/2019) History of colonoscopy (~08/2019) History of esophagogastroduodenoscopy (EGD) (~08/2019) Hx laparoscopic cholecystectomy Social History Smoking and tobacco status: never smoked Alcohol intake: never Household members: spouse and family Housing: House Data Anesthesia Cardiac Studies: No Data to Display
[2019-09-25] MEDS: lidocaine 1% INJ 20 mL SUBCUT (10:55)
--- NOTE | 2019-09-25 11:26 | PM.OP ---
Operative Report Date of procedure: September 25, 2019 Pre-op Diagnosis: Peritoneal carcinomatosis Post-op diagnosis: same Procedure Done: Placement of tunneled peritoneal catheter Pathology: none sent Surgeon: Michele Corbett Anesthesia: MAC and General Estimated blood loss (mL): 10 Condition: stable Disposition: same day Procedure: The patient was taken to the operating room and placed under MAC after IV antibiotic had been administered. The abdomen was prepped and draped in a sterile manner. Using ultrasound guidance the left lower quadrant of the abdomen was identified where there was adequate ascites fluid with no significant small bowel loops adherent. An introducer needle was used to assess the peritoneal cavity with aspiration of ascites fluid. There was no aspiration of bile or blood. A guidewire was passed through the needle and the needle was removed. Skin incision was extended using 11 blade and dilator sheath was passed over the guidewire and the guidewire was removed. The inner dilator was removed and the dialysis catheter was introduced into the peritoneal cavity as the peel-away sheath was removed. The catheter was attached to tunneler and exited laterally ensuring that the cuffs were placed subcutaneously. The skin incision was closed using 4-0 Monocryl and surgical glue. The patient was transferred to same-day surgery in stable condition.
[2019-09-25 11:29] VITALS: BP 108/83; PULSE 77; RESP 18; TEMP 36.4; O2SAT 99
[2019-09-25 11:47] VITALS: BP 122/88; PULSE 83; RESP 18; O2SAT 99
[2019-09-25 12:03] VITALS: BP 122/81; PULSE 77; RESP 18; O2SAT 98
[2019-09-25] MEDS: HYDROcodone-acetaminophen 5-325 mg Tablet 1 TAB PO (12:07)
== END 2019-09-25 12:30 | disposition home or self-care (01) ==
PROVIDERS: Family Provider Family Medicine; PCP Family Medicine; Visit Provider Surgery
PROC: (CPT 49324; principal; 2019-09-25 08:35)
DX: C78.6 Secondary malignant neoplasm of retroperitoneum and peritoneum (principal); R18.8 Other ascites
CPT/HCPCS: 49324; 12345; C1750; J0690; J2001; J2704; J3010; J3490; J7030